=== PATIENT | male | born 1965 | race Hispanic/Latino ===

== ENCOUNTER 2019-10-29 17:28 | Emergency (ER) | payer OTHER ==
[~2019-10-29] VITALS: Ht 160 cm; Wt 56.0 kg
[2019-10-29 19:34] VITALS: BP 141/84
== END 2019-10-29 19:34 | disposition home or self-care (01) | DRG 605 ==
LOC: ED 17:28
DX: S20.212A Contusion of left front wall of thorax, initial encounter (principal); S90.01XA Contusion of right ankle, initial encounter; W01.0XXA Fall on same level from slipping, tripping and stumbling without subsequent striking against object, initial encounter